=== PATIENT | male | born 1980 | race Caucasian/White ===

== ENCOUNTER 2019-10-11 04:20 | Emergency (ER) | payer SELFPAY ==
[~2019-10-11] VITALS: Ht 170.2 cm; Wt 85.2 kg
[2019-10-11 04:22] VITALS: BP 127/74
[2019-10-11] MEDS ORDERED: CEPHALEXIN 500 MG CAPSULE ONE (04:49)
[2019-10-11] MEDS ORDERED: SULFAMETH./TRIMETHOPRIM DS 800MG/160MG TABLET ONE (04:49)
--- NOTE | 2019-10-11 04:52 | NUR ---
MEDICATED PER MAR.
[2019-10-11] MEDS ORDERED: CEPHALEXIN 500 MG CAPSULE PO ONE (05:00)
[2019-10-11] MEDS ORDERED: SULFAMETH./TRIMETHOPRIM DS 800MG/160MG TABLET PO ONE (05:00)
== END 2019-10-11 05:18 | disposition home or self-care (01) ==
LOC: ED 05:10
DX: L03.116 Cellulitis of left lower limb (principal)
CPT/HCPCS: 99283

== ENCOUNTER 2019-10-12 07:16 | Emergency (ER) | payer SELFPAY ==
[~2019-10-12] VITALS: Ht 170.2 cm; Wt 86.0 kg
[2019-10-12 07:19] VITALS: BP 127/74
--- NOTE | 2019-10-12 07:34 | NUR ---
EXAMINED BY MD IN TRIAGE AND THEN GIVEN DISCHARGE -PAPERS
== END 2019-10-12 07:36 | disposition home or self-care (01) ==
LOC: ED 07:26
DX: S40.861A Insect bite (nonvenomous) of right upper arm, initial encounter (principal); W57.XXXA Bitten or stung by nonvenomous insect and other nonvenomous arthropods, initial encounter; Y93.89 Activity, other specified; Y92.89 Other specified places as the place of occurrence of the external cause; Y99.8 Other external cause status
CPT/HCPCS: 99281

== ENCOUNTER 2019-10-20 09:15 | Emergency (ER) | payer SELFPAY ==
[~2019-10-20] VITALS: Ht 170.2 cm; Wt 87.7 kg
[2019-10-20 09:18] VITALS: BP 127/61
--- NOTE | 2019-10-20 09:23 | NUR ---
PT AMBULATED TO ROOM FROM TRIAGE WITH A STEADY GAIT
--- NOTE | 2019-10-20 09:37 | NUR ---
is at the bedside for consult
== END 2019-10-20 10:05 | disposition home or self-care (01) ==
LOC: ED 09:48
DX: F51.04 Psychophysiologic insomnia (principal); R41.9 Unspecified symptoms and signs involving cognitive functions and awareness; R21 Rash and other nonspecific skin eruption
CPT/HCPCS: 99283

== ENCOUNTER 2020-01-10 10:24 | Emergency (ER) | payer SELFPAY ==
[~2020-01-10] VITALS: Ht 172.7 cm; Wt 87.8 kg
[2020-01-10 10:29] VITALS: BP 118/78
--- NOTE | 2020-01-10 10:42 | NUR ---
Presents from work note. right knee bothering him (no trauma) as his new job (started working 7 days ago) requires 11+ miles of walking cms intact, full rom without pain
== END 2020-01-10 12:33 | disposition home or self-care (01) ==
LOC: ED 10:44
DX: I83.11 Varicose veins of right lower extremity with inflammation (principal)
CPT/HCPCS: 99284

== ENCOUNTER 2020-01-18 10:41 | Emergency (ER) | payer OTHER ==
[~2020-01-18] VITALS: Ht 177.8 cm; Wt 86.9 kg
[2020-01-18 10:42] VITALS: BP 11/78
--- NOTE | 2020-01-18 11:15 | NUR ---
Patient given discharge instructions and they have confirmed that they understand the instructions. Patient ambulatory with steady gait.
== END 2020-01-18 11:17 | disposition home or self-care (01) ==
LOC: ED 11:00
DX: L03.114 Cellulitis of left upper limb (principal)
CPT/HCPCS: 99283